=== PATIENT | female | born 1935 | race Caucasian/White ===

== ENCOUNTER 2021-02-23 13:01 | Emergency (ER) | payer OTHER, MEDICARE ==
[~2021-02-23] VITALS: Ht 149.9 cm; Wt 49.9 kg
--- NOTE | ~2021-02-23 | EMS ---
[address] [address] EMS Patient Care Report Name: ANTOINE SAMS Room #: PRE M.R.#: [id number] Admission: Attend Phys: Discharge: Date of : [birth year] Report #: [id number] THIS REPORT FOR: //name// Report Transmitted: 02/23/2021 12:35 EMS Care Summary [facility] Incident [id number] @ 02/23/2021 12:19 Incident Location [address] [place] [address] Patient ANTOINE SAMS Female, 85 Years 1935 Patient Address [address] [place] [address] Patient History Cancer, Unspecified,Pacemaker/AICD,Osteoporosis,Diverticulitis,Atrial Fibrillation,Chronic Pain, Patient Allergies Sulfa, Patient Medications Zofran, Gabapentin, Furosemide, Miralax, Melatonin, Prednisone, Ondansetron, Cholecalciferol, Levothyroxine, Pantoprazole, Oxycodone, Ferrous Sulfate, Lasix, Chief Complaint Neck Swelling and Bruising Disposition Transported No Lights/Enfield Dispatch Reason Sick Person Transported To [address] [address] EMS Patient Care Report Name: ANTOINE SAMS Room #: PRE Jesús#: [id number] Admission: Attend Phys: Discharge: Date of : [birth year] Report #: [id number] Narrative Dispatched to [facility] on a C-3 Sick Patient. Upon arrival we find the patient sitting on the couch in the living room of her apartment in care of facility nursing staff. The patient complains of swelling, pain, tenderness, and excessive bruising on the left side of her neck. The patient states that she took a mid-morning nap and when she woke the symptoms had appeared on her neck. She denies any falls or recent trauma. She reports that when she took her nap she was laying on that side of her body. The patient is currently taking a blood thinning medication. Vitals Assessed, PMH, Physical Exam, the patient is assisted to the cot and moved to the ambulance for transport. The patient rests comfortably and has no further complaints during transport. Vital signs remain stable. Initial Vitals @12:51P: 104,R: 16,BP: 161/75,GCS: 15,SpO2: 96,Revised Trauma: 12, @12:29P: 112,R: 16,BP: 159/78,Pain: 4/10,GCS: 15,Temp: 97.2F,SpO2: 97,Revised Trauma: 12, Impression Injury of Neck Procedures @12:36 Surgical Mask on Patient Response: Unchanged Timeline 12:17,Call Received 12:17,Psap Call 12:19,Dispatched 12:20,En Route 12:25,On Scene 12:27,At Patient 12:29,BP: 159/78 M,PULSE: 112,RR: 16 R,SPO2: 97 Ox,ETCO2: ,BG: ,PAIN: 4,GCS: 15, 12:35,Depart Scene 12:36,Surgical Mask on Patient,Response: Unchanged 12:51,BP: 161/75 M,PULSE: 104,RR: 16 R,SPO2: 96 Ox,ETCO2: ,BG: ,PAIN: ,GCS: 15, 12:54,At Destination 13:08,Call Closed Disclaimer [facility] [address] [place] [address] EMS Patient Care Report Name: ANTOINE SAMS Room #: PRE [facility].R.#: [id number] Admission: Attend Phys: Discharge: Date of : [birth year] Report #: [id number] Copyright 2020 [employer] This EMS Care Summary contains data elements from the applicable legal record (which may be displayed differently). It is designed to provide pertinent information for the following purposes: continuity of care, clinical quality, and state data reporting. The complete legal record is available to ED staff and administrators of the receiving hospital in [facility] Patient Tracker. All data is provided "as is."
[~2021-02-23 13:01] MED LIST: ALDACTONE25 MG PO; CALCIUM 600 +1 EAC1 PO; CIPRO500 MG PO; COREG6.25 MG PO; HYDROXYCHLOROQ200 M1 PO; IMIPRAMINE HCL10 M2 PO; LASIX 20 MG TAB20 MG PO; LEVOTHYROXIN0.088 MG PO; PREDNISONE 5 MG5 M1 PO; PRILOSEC20 MG PO; VITAMIN D1000 UNI1 PO
[2021-02-23 13:29] LABS: ABSOLUTE NEUTROPHILS 3.9 thou/uL (1.4-8.2); BASOPHILS 0.7 % (0.0-2.0); EOSINOPHILS 7.3 % (0.0-3.0); HEMATOCRIT 39.8 % (37.0-47.0); HEMOGLOBIN 12.9 gm/dL (12.0-15.0); LYMPHOCYTES 30.9 % (24.0-44.0); MCH 31.4 pg (26.0-34.0); MCHC 32.5 g/dL (28.0-37.0); MCV 96.6 fL (80.0-100.0); MONOCYTES 7.6 % (1.0-8.0); PLATELET COUNT 186 thou/uL (150-400); POLYS 53.5 % (36.0-66.0); RBC 4.12 mil/uL (4.20-5.00); RDW 14.8 % (10.5-14.5); WBC 7.4 thou/uL (4.0-11.0)
[2021-02-23 13:37] LABS: CALCIUM 8.9 mg/dL (8.5-10.1); CREATININE 0.8 mg/dL (0.6-1.0); POTASSIUM 3.9 mmol/L (3.5-5.1)
[2021-02-23 15:22] VITALS: BP 130/52
== END 2021-02-23 15:22 | disposition short-term general hospital (02) ==
LOC: ER 13:01
PROVIDERS: Emergency Medicine
DX: S10.93XA Contusion of unspecified part of neck, initial encounter (principal); I48.91 Unspecified atrial fibrillation; Z98.890 Other specified postprocedural states; Z79.891 Long term (current) use of opiate analgesic; Z79.1 Long term (current) use of non-steroidal anti-inflammatories (NSAID); Z79.899 Other long term (current) drug therapy; Z88.2 Allergy status to sulfonamides; X58.XXXA Exposure to other specified factors, initial encounter; Y93.89 Activity, other specified; Y92.89 Other specified places as the place of occurrence of the external cause; Y99.8 Other external cause status